=== PATIENT | female | born 1980 | race Hispanic/Latino ===

== ENCOUNTER 2020-05-18 06:45 | Day surgery (SDC) | payer BC ==
[2020-05-16 14:27] LABS: BASOPHILS % (AUTO) 0.6 % (0.0-5.0); EOSINOPHILS % (AUTO) 2.3 % (0.0-8.0); HEMATOCRIT 33.2 % (36-48); LYMPHOCYTES % (AUTO) 38.1 % (21.0-51.0); MEAN CORPUSCULAR HEMOGLOBIN 26.1 pg (27.0-33.0); MEAN CORPUSCULAR HGB CONC 29.5 g/dL (32.0-36.0); MEAN CORPUSCULAR VOLUME 88.3 fL (79-99); MONOCYTES % (AUTO) 6.6 % (3.0-13.0); PLATELET COUNT (AUTO) 478 K/uL (130-400); RED BLOOD CELL COUNT(AUTO) 3.76 MIL/uL (4.00-5.50); RED CELL DISTRIBUTION WIDTH 15.5 % (11.0-15.5); WHITE BLOOD COUNT (AUTO) 4.9 K/uL (4.8-10.8)
[2020-05-17 10:51] VITALS: BP 144/84
[2020-05-18] VITALS (15 sets, daily range): BP systolic 113–146; BP diastolic 62–83
[~2020-05-18] VITALS: Ht 160 cm; Wt 112.9 kg
[~2020-05-18 06:45] MED LIST: FERR325T22 PO; LISI10TA24 PO
[2020-05-18] MEDS: CEFAZOLIN SODIUM 1 GM VIAL ONE ×2 (07:52→09:18)
[2020-05-18] MEDS ORDERED: CALDOLOR 800MG+NS 250ML 250 ML IV PRN (08:00)
[2020-05-18] MEDS ORDERED: LACTATED RINGERS 1000ML 1,000 ML IV SCH (08:00)
[2020-05-18] MEDS ORDERED: MIDAZOLAM HCL 1 MG/ML 2ML VIAL ONE (09:08)
[2020-05-18] MEDS ORDERED: FENTANYL CITRATE PF 50 MCG/1 ML 2ML VIAL ONE (09:08)
[2020-05-18] MEDS ORDERED: SUCCINYLCHOLINE CHLORIDE 20 MG/ML 10 ML VIAL ONE (09:08)
[2020-05-18] MEDS ORDERED: ROCURONIUM 10MG/1ML SYR 10 MG/ML ML ONE (09:08)
[2020-05-18] MEDS ORDERED: PROPOFOL 10 MG/ML 20ML VIAL IV ONE (09:08)
[2020-05-18] MEDS ORDERED: LIDOCAINE HCL-MPF 1% 5ML AMP IJ ONE (09:08)
[2020-05-18] MEDS ORDERED: MEPERIDINE-PF 25 MG/ML SYG ONE ×2 (10:10→10:20)
== END 2020-05-18 11:40 | disposition home or self-care (01) ==
LOC: DAH 06:45
PROVIDERS: ATTEND Obstetrics & Gynecology
DX: N92.1 Excessive and frequent menstruation with irregular cycle (principal); Z20.822 Contact with and (suspected) exposure to COVID-19; N81.4 Uterovaginal prolapse, unspecified; I10 Essential (primary) hypertension; E66.01 Morbid (severe) obesity due to excess calories; Z98.890 Other specified postprocedural states; Z80.3 Family history of malignant neoplasm of breast; Z80.0 Family history of malignant neoplasm of digestive organs; Z68.41 Body mass index [BMI] 40.0-44.9, adult
CPT/HCPCS: 36415; 58563; 84703; 85025; 86850; 86900; 86901; A4213; A4215; A4216; A4221; A4222; A4223 ×2; A4351; A4355; A4663; C9803; J0330; J0690; J1741; J2175 ×2; J2250; J2704; J3010; J3490; J7030; J7120; U0003